=== PATIENT | male | born 1950 | race Caucasian/White ===

== ENCOUNTER 2017-09-25 04:05 | Inpatient (IN) | payer MEDICARE, OTHER ==
[~2017-09-25] VITALS: Ht 167.6 cm; Wt 50.3 kg
[2017-09-25 05:00] VITALS: BP 141/74
--- NOTE | 2017-09-25 05:00 | NUR ---
GPS ADMISSION NOTE, RECEIVED PATIENT FROM [facility]. PATIENT ARRIVED ON THIS UNIT AT 0500 VIA STRETCHER WITH 2 EMT ESCORTS. PATIENT ADMITTED ON A 5150 HOLD FOR GD. PER HOLD PATIENT HAS BEEN TRESPASSING FROM [employer]. PATIENT WAS INSIDE HIS VEHICLE THE NIGHT PRIOR. PATIENT HAS BEEN REFUSING TO GET MEDICAL HELP FOR A INFECTION IN HIS RIGHT LEG. PATIENT IS UNABLE TO GIVE A VIABLE PLAN OF SELF CARE. THE 5150 WAS REVIEWED AND THE DOCUMENTATION IN THE 5150 HOLD APPEARS TO REFLECT THE PRESENTATION OF THE PATIENT. UPON FACE TO FACE ASSESSMENT PATIENT IS CURRENTLY LYING IN BED AWAKE, HAS NO S/S OR COMPLAINTS OF PAIN. PATIENT IS DISPLAYING NO S/S OF APPARENT DISTRESS. PATIENT BREATHING IS UNLABORED WITH EQUAL RISE AND FALL OF THE CHEST. PATIENT IS ALERT AND ORIENTATED X 2 ON ROOM AIR. PATIENT ASSISTED WITH TURING AND REPOSITIONING Q2HR AND PRN FOR COMFORT AND CIRCULATION. PATIENT HAS NO NEEDS AT THIS TIME. PATIENT IS NOTED TO BEING, ANXIOUS, DISHEVELED, DISORGANIZED, COOPERATIVE, AND NEEDS REDIRECTION. PATIENT DENIES SUICIDE IDEATIONS AND HOMICIDAL IDEATIONS AT THIS TIME. PATIENT IS UNDER THE PSYCHIATRIC CARE OF DR. KELLY AND THE MEDICAL CARE OF DR JAFFE. PATIENT BELONGINGS WERE INVENTORIED AND CHECKED FOR CONTRABAND. ALL CONTRABAND REMOVED AND STORED IN PATIENT HALLWAY LOCKER. PATIENT ADVANCED DIRECTIVES PREFERENCE, IMMUNIZATIONS QUESTIONER, NECESSARY PAPERWORK, AND SKIN ASSESSMENT COMPLETED. PATIENT ORIENTATED TO ROOM, FLOOR, AND STAFF WITH ALL QUESTIONS ANSWERED. PATIENT EDUCATED ON THE USE OF THE CALL ESPINO. PATIENT BED SIDE RAILS ARE UP X 2 FOR SAFETY. PATIENT BED IS LOCKED, LOW AND I WILL CONTINUE TO MONITOR THIS PATIENT Q 15 MIN WITH THE HELP OF STAFF TO MAINTAIN SAFETY.
[2017-09-25] MEDS ORDERED: DOXY100C2 PO (05:28)
[2017-09-25] MEDS ORDERED: MAGNESIUM HYDROXIDE 30 ML UDC PO PRN (05:30)
[2017-09-25] MEDS ORDERED: MAG HYDROX/AL HYDROX/SIMETH 30 ML UDC PO PRN (05:30)
[2017-09-25] MEDS ORDERED: LEVO75TA7 PO (05:38)
[2017-09-25] MEDS ORDERED: ATEN50TA PO (05:38)
[2017-09-25 08:00] VITALS: BP 142/71
[2017-09-25] MEDS: NICOTINE PATCH (14MG) 14 MG PATCH.TD24 TD SCH (09:30)
[2017-09-25] MEDS ORDERED: VITAMINS A AND D 56.7 GM TUBE TP PRN (10:30)
--- NOTE | 2017-09-25 10:31 | NUR ---
WOUND CARE CONSULT: PT PRESENTS WITH DRY CRACKED SKIN ON RT FOOT AND HEEL WITH REDNESS, SWELLING AND WARMTH TO RT LOWER LEG, PRESENT ON ADMISSION. DEFER TO MD FOR RT LOWER LEG. PT USING URINAL WITH ASSISTANCE. WILL SEE PRN. CURRENT CINDY SCORE IS 19. MD IN AGREEMENT WITH PLAN OF CARE.
[2017-09-25] MEDS ORDERED: DIVALPROEX SODIUM 125 MG TABLET.DR PO SCH (15:00)
[2017-09-25] MEDS: DIVALPROEX SODIUM 125 MG TABLET.DR PO SCH ×2 (15:16→21:28)
[2017-09-25] MEDS: QUETIAPINE FUMARATE 25 MG TABLET PO SCH ×2 (15:16→21:28)
[2017-09-25] MEDS: clonazePAM 0.5 MG TABLET PO PRN (15:40)
--- NOTE | 2017-09-25 15:45 | NUR ---
GPS/RN-NOTES NOTED PATIENT WITH SCREAMING AND YELLING USING FOUL LANGUAGES. UNCOOPERATIVE. KLONOPIN 0.5MG P.O GIVEN PRN ORDER. WILL CONT. MONITORING FOR SAFETY AND BEHAVIOR.
[2017-09-25 15:50] VITALS: BP 145/90
--- NOTE | 2017-09-25 17:25 | NUR ---
GPS/RN-NOTES NOTED PATIENT WITH COMPULSIVE BEHAVIOR,GETTING OUT OF BED UNASSISTED WITH UNSTEADY GAIT. PATIENT WAS UNCOOPERATIVE DURING CARE. DR. BAHENA MADE AWARE OF PATIENT BEHAVIOR WITH ORDER OF 1:1 SITTER.
--- NOTE | 2017-09-25 18:34 | NUR ---
GPS/RN-NOTES PATIENT WAS SEEN BY AVELINO MONTAÑO WITH THE ORDER OF VENOUS DROPPER GARRICK LOWER EXTREMITIES.NOTED AND CARRIED OUT. ALSO AVELINO MONTAÑO STATED HE WILL ASK CARLIE GOMEZ IF HE WILL RECONCILE PATIENT MEDICATIONS.
[2017-09-25 20:22] VITALS: BP 123/63
[2017-09-25] MEDS: DOXYCYCLINE HYCLATE (100 MG) 100 MG TABLET PO SCH (21:28)
[2017-09-26 07:21] LABS: ALBUMIN 2.9 g/dL (3.4-5.0); BILIRUBIN,TOTAL 0.3 mg/dL (0.2-1.0); CALCIUM, SERUM 8.2 mg/dL (8.5-10.1); CREATININE 1.3 mg/dL (0.6-1.3); POTASSIUM 3.9 mmol/L (3.5-5.1); TOTAL PROTEIN, SERUM 7.2 g/dL (6.4-8.2)
[2017-09-26 07:26] LABS: CHOLESTEROL 144 mg/dL (<200); HDL CHOLESTEROL 57 mg/dL (40-60); LDL 66 mg/dL (0-99); TRIGLYCERIDES 97 mg/dL (30-150)
[2017-09-26 07:36] LABS: BASOPHILS % (AUTO) 0.7 % (0.0-2.0); EOSINOPHILS % (AUTO) 0.6 % (0.0-6.0); HEMATOCRIT 29 % (39-51); HEMOGLOBIN 9.5 g/dL (13.5-17.5); LYMPHOCYTES # (AUTO) 0.9 /CMM (0.8-4.8); MEAN CORPUSCULAR HEMOGLOBIN 31 PG (26.0-33.0); MEAN CORPUSCULAR HGB CONC 33 g/dl (31.0-36.0); MEAN CORPUSCULAR VOLUME 92 fL (80-96); MONOCYTES # (AUTO) 0.8 /CMM (0.1-1.30); MONOCYTES % (AUTO) 19.7 % (2.0-12.0); NEUTROPHILS # (AUTO) 2.1 /CMM (1.8-8.9); PLATELET COUNT (AUTO) 238 /CMM (150-450); RDW COEFFICIENT OF VARIATION 15.7 (11.5-15.0); RED BLOOD CELL COUNT(AUTO) 3.12 MIL/uL (4.5-6.0); WHITE BLOOD COUNT (AUTO) 3.9 K/uL (4.3-11.0)
[2017-09-26 08:00] VITALS: BP 146/75
[2017-09-26 08:28] LABS: LYMPHOCYTES % (MANUAL) 33 % (16-48); MONOCYTES % (MANUAL) 5 % (0-11.0); NEUTROPHILS % (MANUAL) 62 (42-76)
[2017-09-26] MEDS ORDERED: ATENOLOL 50 MG TABLET PO SCH (09:00)
[2017-09-26] MEDS: LEVOTHYROXINE SODIUM 75 MCG TABLET PO SCH (09:19)
[2017-09-26] MEDS: DIVALPROEX SODIUM 125 MG TABLET.DR PO SCH ×4 (09:19→16:09)
[2017-09-26] MEDS: NICOTINE PATCH (14MG) 14 MG PATCH.TD24 TD SCH (09:20)
[2017-09-26] MEDS: ATENOLOL 25 MG TABLET PO SCH (09:21)
[2017-09-26] MEDS: QUETIAPINE FUMARATE 25 MG TABLET PO SCH ×4 (09:21→21:26)
[2017-09-26] MEDS: DOXYCYCLINE HYCLATE (100 MG) 100 MG TABLET PO SCH ×2 (09:22→21:26)
--- NOTE | 2017-09-26 13:50 | NUR ---
GPS RN NOTE : PT IN THE ROOM RESTLESS REFUSED MEDICATIONS, THROW FOOD ON THE FLOOR ,YELLING.1:1 SITTER AT THE SIDE PROVIDE CALM SAFE ENVIRONMENT CONTINUE MONITORING.
[2017-09-26 16:00] VITALS: BP 129/69
[2017-09-26 20:00] VITALS: BP 115/64
[2017-09-26] MEDS: clonazePAM 0.5 MG TABLET PO PRN (21:26)
[2017-09-27 08:00] VITALS: BP 131/66
[2017-09-27 08:19] LABS: BASOPHILS # (AUTO) 0.1 /CMM (0.0-0.2); EOSINOPHILS # (AUTO) 0.1 /CMM (0.0-0.7); HEMOGLOBIN 10.3 g/dL (13.5-17.5); MEAN CORPUSCULAR HEMOGLOBIN 32 PG (26.0-33.0); RED BLOOD CELL COUNT(AUTO) 3.27 MIL/uL (4.5-6.0)
[2017-09-27 08:21] LABS: BASOPHILS % (AUTO) 1.1 % (0.0-2.0); EOSINOPHILS % (AUTO) 1.5 % (0.0-6.0); HEMATOCRIT 29 % (39-51); LYMPHOCYTES # (AUTO) 1.4 /CMM (0.8-4.8); LYMPHOCYTES % (AUTO) 27.5 % (20.0-44.0); MEAN CORPUSCULAR HGB CONC 35 g/dl (31.0-36.0); MEAN CORPUSCULAR VOLUME 89 fL (80-96); MONOCYTES # (AUTO) 0.9 /CMM (0.1-1.30); MONOCYTES % (AUTO) 17.6 % (2.0-12.0); NEUTROPHILS # (AUTO) 2.6 /CMM (1.8-8.9); NEUTROPHILS % (AUTO) 52.3 % (43.0-81.0); PLATELET COUNT (AUTO) 229 /CMM (150-450); WHITE BLOOD COUNT (AUTO) 5.1 K/uL (4.3-11.0)
[2017-09-27] MEDS: DOXYCYCLINE HYCLATE (100 MG) 100 MG TABLET PO SCH ×2 (08:25→22:43)
[2017-09-27] MEDS: LEVOTHYROXINE SODIUM 75 MCG TABLET PO SCH (08:25)
[2017-09-27] MEDS: DIVALPROEX SODIUM 125 MG TABLET.DR PO SCH ×3 (08:25→17:01)
[2017-09-27] MEDS: QUETIAPINE FUMARATE 25 MG TABLET PO SCH ×3 (08:25→22:43)
[2017-09-27] MEDS: ATENOLOL 25 MG TABLET PO SCH (08:25)
[2017-09-27] MEDS: NICOTINE PATCH (14MG) 14 MG PATCH.TD24 TD SCH (08:26)
[2017-09-27 08:47] LABS: FERRITIN 254 ng/mL (8-388)
[2017-09-27 09:12] LABS: CALCIUM, SERUM 8.7 mg/dL (8.5-10.1); CREATININE 1.2 mg/dL (0.6-1.3); PHOSPHORUS 3.7 mg/dL (2.5-4.9); POTASSIUM 4.2 mmol/L (3.5-5.1)
[2017-09-27 09:14] LABS: IRON, SERUM 35 ug/dl (50-175); TOTAL IRON BINDING CAPACITY 238 ug/dl (250-450)
--- NOTE | 2017-09-27 12:03 | NUR ---
Initial Discharge Note: Patient is homeless and does not have a safe place to discharge to. Upon consultation with psychiatrist, it was determined that a SNF placement would be best for patient. SW will facilitate a safe discharge plan and will secure placement for patient.
--- NOTE | 2017-09-27 12:40 | NUR ---
Discharge Planning: ABBEY faxed inquiry to [facility] [id number] [place] [address] , fax number: [phone]. ABBEY will follow up.
[2017-09-27 16:00] VITALS: BP 135/76
[2017-09-27 17:16] LABS: BASOPHILS % (MANUAL) 1 % (0.0-2.0); LYMPHOCYTES % (MANUAL) 34 % (16-48); MONOCYTES % (MANUAL) 18 % (0-11.0); NEUTROPHILS % (MANUAL) 47 (42-76)
[2017-09-27] MEDS: ACETAMINOPHEN 325 MG TABLET PO PRN (18:26)
[2017-09-27 20:00] VITALS: BP 125/69
--- NOTE | 2017-09-27 20:30 | NUR ---
RECEIVED PATIENT RESTING QUIETLY IN BED, A/O X2, CALM AND WELL BEHAVED. NO ACUTE DISTRESS NOTED. HAS 1:1 SITTER FOR SAFETY. WILL CONTINUE TO MONITOR Q 15 MINS. TO MAINTAIN SAFETY.
[2017-09-28] MEDS: TEMAZEPAM 7.5 MG CAPSULE PO PRN ×2 (00:01→21:54)
--- NOTE | 2017-09-28 00:01 | NUR ---
REPORT GIVEN TO JANA HALL FOR CONTINUITY OF CARE
[2017-09-28 08:00] VITALS: BP 111/63
[2017-09-28] MEDS: ATENOLOL 25 MG TABLET PO SCH (09:00)
[2017-09-28] MEDS: LEVOTHYROXINE SODIUM 75 MCG TABLET PO SCH (09:25)
[2017-09-28] MEDS: DOXYCYCLINE HYCLATE (100 MG) 100 MG TABLET PO SCH ×2 (09:25→21:54)
[2017-09-28] MEDS: QUETIAPINE FUMARATE 25 MG TABLET PO SCH ×4 (09:25→21:54)
[2017-09-28] MEDS: DIVALPROEX SODIUM 125 MG TABLET.DR PO SCH ×3 (09:26→16:46)
[2017-09-28] MEDS: NICOTINE PATCH (14MG) 14 MG PATCH.TD24 TD SCH (09:26)
[2017-09-28] MEDS: clonazePAM 0.5 MG TABLET PO PRN (09:55)
--- NOTE | 2017-09-28 10:24 | NUR ---
GPS/RN-NOTES NOTED PATIENT WITH SCREAMING AND YELLING AT THE STAFF USING FOUL LANGUAGES. OFFERED KLONOPIN OFFERED AND AGREES. KLONOPIN 0.5MG P.O GIVEN PRN ORDER. WILL CONT. MONITORING FOR SAFETY AND BEHAVIOR.
[2017-09-28 16:00] VITALS: BP 156/77
[2017-09-28 20:00] VITALS: BP 147/76
[2017-09-29 08:00] VITALS: BP 162/84
[2017-09-29] MEDS: QUETIAPINE FUMARATE 25 MG TABLET PO SCH ×4 (09:25→21:18)
[2017-09-29] MEDS: DOXYCYCLINE HYCLATE (100 MG) 100 MG TABLET PO SCH ×2 (09:25→21:18)
[2017-09-29] MEDS: DIVALPROEX SODIUM 125 MG TABLET.DR PO SCH ×3 (09:25→17:00)
[2017-09-29] MEDS: LEVOTHYROXINE SODIUM 75 MCG TABLET PO SCH (09:26)
[2017-09-29] MEDS: NICOTINE PATCH (14MG) 14 MG PATCH.TD24 TD SCH (09:26)
[2017-09-29] MEDS: ATENOLOL 25 MG TABLET PO SCH (09:26)
[2017-09-29 15:59] VITALS: BP 118/67
[2017-09-29 21:08] VITALS: BP 121/65
--- NOTE | 2017-09-29 23:00 | NUR ---
GPS RN NOTE, RECEIVED PATIENT AWAKE AND IN BED, NO S/S OR COMPLAINTS OF PAIN AT THIS TIME. PATIENT IS DISPLAYING NO S/S OF APPARENT DISTRESS AT THIS TIME. PATIENT BREATHING IS UNLABORED WITH EQUAL RISE AND FALL OF THE CHEST. PATIENT IS ALERT AND ORIENTED X 2 ON ROOM AIR WITH A SPOO2 95 %. PATIENT IS COMPLAINT WITH MEDICATION, ANXIOUS AT TIMES, COOPERATIVE, DISORGANIZED, USES FOUL LANGUAGE, AND NEEDS REORIENTATION. PATIENT HAS ONE TO ONE SITTER FOR SAFETY. PATIENT DENIES SUICIDE IDEATIONS AND HOMICIDAL IDEATIONS AT THIS TIME. PATIENT ASSISTED WITH TURNING AND REPOSITIONING Q2HR AND PRN FOR COMFORT AND CIRCULATION. PATIENT HAS NO NEEDS AT THIS TIME. PATIENT EDUCATED ON THE USE OF THE CALL ESPINO. PATIENT BED SIDE RAILS UP X 2 FOR SAFETY. PATIENT BED IS LOCKED AND LOW WILL CONTINUE TO MONITOR AND MAINTAIN SAFETY Q15 MIN WITH THE HELP OF STAFF.
[2017-09-30 08:00] VITALS: BP 109/66
[2017-09-30] MEDS: NICOTINE PATCH (14MG) 14 MG PATCH.TD24 TD SCH (08:33)
[2017-09-30] MEDS: QUETIAPINE FUMARATE 25 MG TABLET PO SCH ×4 (08:34→20:52)
[2017-09-30] MEDS: DIVALPROEX SODIUM 125 MG TABLET.DR PO SCH ×3 (08:34→17:19)
[2017-09-30] MEDS: LEVOTHYROXINE SODIUM 75 MCG TABLET PO SCH (08:34)
[2017-09-30] MEDS: DOXYCYCLINE HYCLATE (100 MG) 100 MG TABLET PO SCH ×2 (08:34→20:52)
[2017-09-30] MEDS: ATENOLOL 25 MG TABLET PO SCH (08:34)
[2017-09-30 15:58] VITALS: BP 102/63
[2017-09-30] MEDS: LACTOBACILLUS RHAMNOSUS GG 1 EACH CAP.SPRINK PO SCH (17:19)
[2017-09-30 19:58] VITALS: BP 117/56
[2017-10-01 08:00] VITALS: BP 166/71
[2017-10-01] MEDS: DIVALPROEX SODIUM 125 MG TABLET.DR PO SCH ×3 (08:19→16:47)
[2017-10-01] MEDS: LEVOTHYROXINE SODIUM 75 MCG TABLET PO SCH (08:19)
[2017-10-01] MEDS: ATENOLOL 25 MG TABLET PO SCH (08:20)
[2017-10-01] MEDS: QUETIAPINE FUMARATE 25 MG TABLET PO SCH ×4 (08:20→21:25)
[2017-10-01] MEDS: NICOTINE PATCH (14MG) 14 MG PATCH.TD24 TD SCH (08:21)
[2017-10-01] MEDS: DOXYCYCLINE HYCLATE (100 MG) 100 MG TABLET PO SCH ×2 (08:30→21:25)
[2017-10-01] MEDS: LACTOBACILLUS RHAMNOSUS GG 1 EACH CAP.SPRINK PO SCH ×2 (08:31→16:47)
--- NOTE | 2017-10-01 10:59 | NUR ---
Discharge Planning: ABBEY faxed an inquiry to: [facility] : [address] [place] [address] / / fax #[phone] [facility] : [address] [place] [address] / / fax #[phone] ABBEY to follow up.
--- NOTE | 2017-10-01 15:08 | NUR ---
Discharge Planning: SW was informed by hall coordinator Daryl from [facility] that the diagnosis needs to be specified in order for patient to be considered for placement. SW was informed by Selena from [facility] : [address] [place] [address] / / fax #[phone] that admissions is not working today but that she will follow up with SW tomorrow. SW was unable to get in touch with admissions from [facility] : [address] [place] [address] / / fax #[phone]. SW to follow up later.
--- NOTE | 2017-10-01 15:14 | NUR ---
Discharge Planning: SW faxed an inquiry to [facility] [address] [place] [address] / [phone] / fax number [phone]. SW to follow up on status.
[2017-10-01 15:41] VITALS: BP 119/64
[2017-10-01 20:40] VITALS: BP 114/67
--- NOTE | 2017-10-02 06:29 | NUR ---
Pt c/o of indigestion. Maalox susp 30 ml/po given as ordered. Will continue to monitor.
[2017-10-02] MEDS: QUETIAPINE FUMARATE 25 MG TABLET PO SCH ×4 (08:17→21:19)
[2017-10-02] MEDS: DIVALPROEX SODIUM 125 MG TABLET.DR PO SCH ×3 (08:17→16:10)
[2017-10-02] MEDS: NICOTINE PATCH (14MG) 14 MG PATCH.TD24 TD SCH (08:17)
[2017-10-02] MEDS: ATENOLOL 25 MG TABLET PO SCH (08:18)
[2017-10-02] MEDS: DOXYCYCLINE HYCLATE (100 MG) 100 MG TABLET PO SCH ×2 (08:18→21:19)
[2017-10-02] MEDS: LEVOTHYROXINE SODIUM 75 MCG TABLET PO SCH (08:18)
[2017-10-02] MEDS: LACTOBACILLUS RHAMNOSUS GG 1 EACH CAP.SPRINK PO SCH ×2 (08:18→16:10)
[2017-10-02 09:34] VITALS: BP 108/76
--- NOTE | 2017-10-02 11:10 | NUR ---
Discharge planning: ABBEY was informed by December in admissions at [facility] [address] [place] [address] / [phone] / fax number [phone] that patient was not accepted into the facility due to "noncompliant behavior"
--- NOTE | 2017-10-02 11:11 | NUR ---
Discharge Planning: SW faxed an inquiry to [facility], [address] [place] [address] / fax number [phone]. SW to follow up on status of referral.
[2017-10-02 16:32] VITALS: BP 108/69
[2017-10-02] MEDS: ACETAMINOPHEN 325 MG TABLET PO PRN (18:34)
[2017-10-02 20:13] VITALS: BP 134/78
[2017-10-03 08:00] VITALS: BP 141/92
[2017-10-03] MEDS: LEVOTHYROXINE SODIUM 75 MCG TABLET PO SCH (08:41)
[2017-10-03] MEDS: QUETIAPINE FUMARATE 25 MG TABLET PO SCH ×4 (08:41→20:13)
[2017-10-03] MEDS: DIVALPROEX SODIUM 125 MG TABLET.DR PO SCH ×3 (08:41→16:07)
[2017-10-03] MEDS: LACTOBACILLUS RHAMNOSUS GG 1 EACH CAP.SPRINK PO SCH ×2 (08:41→16:07)
[2017-10-03] MEDS: NICOTINE PATCH (14MG) 14 MG PATCH.TD24 TD SCH (08:41)
[2017-10-03] MEDS: DOXYCYCLINE HYCLATE (100 MG) 100 MG TABLET PO SCH ×2 (08:41→20:13)
[2017-10-03] MEDS: ATENOLOL 25 MG TABLET PO SCH (08:42)
[2017-10-03 15:39] VITALS: BP 117/60
[2017-10-03 20:00] VITALS: BP 110/58
--- NOTE | 2017-10-04 02:09 | NUR ---
Patient requested Tylenol for pain due to burning abdominal pain, patient refused when medication was brought to him, offered 2x, patient still refused.
[2017-10-04 08:00] VITALS: BP 131/90
[2017-10-04 09:00] VITALS: BP 131/90
[2017-10-04] MEDS: LEVOTHYROXINE SODIUM 75 MCG TABLET PO SCH (09:00)
[2017-10-04] MEDS: LACTOBACILLUS RHAMNOSUS GG 1 EACH CAP.SPRINK PO SCH (09:00)
[2017-10-04] MEDS: NICOTINE PATCH (14MG) 14 MG PATCH.TD24 TD SCH (09:00)
[2017-10-04] MEDS: ATENOLOL 25 MG TABLET PO SCH (09:00)
[2017-10-04] MEDS: QUETIAPINE FUMARATE 25 MG TABLET PO SCH (09:00)
[2017-10-04] MEDS: DIVALPROEX SODIUM 125 MG TABLET.DR PO SCH (09:00)
[2017-10-04] MEDS: DOXYCYCLINE HYCLATE (100 MG) 100 MG TABLET PO SCH (09:00)
--- NOTE | 2017-10-04 10:20 | NUR ---
Discharge Planning: Patient was initially accepted into SNF [facility], however, SW was informed that the facility was "experiencing some issues" and so patient was accepted into SNF [facility]. SW let patient know this and patient stated that he was fine with this. Patient stated he was glad to leave the hospital.
--- NOTE | 2017-10-04 10:21 | NUR ---
Discharge Note: Patient will be discharged to [facility] [address] [place] [address] via ambulance transportation arranged by social work administrator through [employer], trip #[id number]. Patient has no family to notify. Upon discharge, patient was calm and cooperative. Patient denied suicidal and homicidal ideation. At the facility, patient will be followed by hazardous waste material technician, Dr. Gamez [address] [facility] [address] [address] [phone]. Patient will also be under the care of psychiatrist, Dr. Donovan [address] [facility] [address], [place] [phone].
--- NOTE | 2017-10-04 11:42 | NUR ---
RN-CO: Patient was seen and examined by Dr Guan. Patient was medically cleared for discharge.
--- NOTE | 2017-10-04 13:45 | NUR ---
HEATING TECHNICIAN NOTE:Patient alert ,verbally responsive stated ,vs stable ,denies sucidal ideation and homocidal ideation ,denies visual and auditory hallucination ,no c/o pain .patient refused discharge pictures .all belongings returned to patient ,report given to nurse in [facility] .patient seen by and Freida with discharge orders all orders carried out .patient discharge with ambulance.
== END 2017-10-04 13:45 | DRG 885 ==
LOC: GPS 04:26
PROVIDERS: ADMIT Psychiatry & Neurology Psychiatry; ATTEND Psychiatry & Neurology Psychiatry
DX: F29 Unspecified psychosis not due to a substance or known physiological condition (principal); N17.0 Acute kidney failure with tubular necrosis; D63.8 Anemia in other chronic diseases classified elsewhere; E03.9 Hypothyroidism, unspecified; G31.84 Mild cognitive impairment of uncertain or unknown etiology; I10 Essential (primary) hypertension; D72.819 Decreased white blood cell count, unspecified; Z73.6 Limitation of activities due to disability
CPT/HCPCS: 36415; 80048-TC; 80053-TC; 80061-TC; 80164-TC; 82728-TC; 83540-TC; 83735-TC; 83921; 84100-TC; 85025-TC; 87081-TC; 93970-TC